=== PATIENT | female | born 1995 | race Caucasian/White ===

== ENCOUNTER 2020-08-19 14:04 | Emergency (ER) | payer OTHER ==
[~2020-08-19] VITALS: Ht 165.1 cm; Wt 60.0 kg
[2020-08-19] MEDS ORDERED: diphenhydrAMINE 50 mg/ml inj IV ONE (14:10)
[2020-08-19] MEDS ORDERED: epiNEPHrine 1 mg/ml inj SQ ONE (14:10)
[2020-08-19] MEDS ORDERED: famotidine/PF 10 mg/ml inj IV ONE (14:10)
[2020-08-19] MEDS ORDERED: methylPREDNISolone sod succ 125mg/2ml vial IV ONE (14:10)
[2020-08-19] MEDS ORDERED: ondansetron/PF 4mg/2ml inj IV ONE (14:15)
[2020-08-19 14:45] VITALS: BP 131/74
== END 2020-08-19 15:30 | disposition home or self-care (01) ==
LOC: ER 14:05
DX: T78.40XA Allergy, unspecified, initial encounter (principal); X58.XXXA Exposure to other specified factors, initial encounter
CPT/HCPCS: 96372; 96374; 96375; 99284; J0171; J1200; J2405; J2930; J3490